=== PATIENT | male | born 1975 | race Caucasian/White ===

== ENCOUNTER 2017-12-26 07:28 | Emergency (ER) | payer OTHER ==
[~2017-12-26] VITALS: Ht 170.2 cm; Wt 77.1 kg
[2017-12-26] MEDS ORDERED: TRAMADOL HCL E100 M1 (08:03)
[2017-12-26] MEDS ORDERED: SKELAXIN800 MG PO (10:43)
[2017-12-26] MEDS ORDERED: CELEBREX100 MG PO (10:43)
== END 2017-12-26 10:54 | disposition home or self-care (01) ==
LOC: ER 07:28
DX: M54.89 Other dorsalgia (principal)